=== PATIENT | female | born 1970 | race Caucasian/White ===

== ENCOUNTER 2021-02-05 20:21 | Emergency (ER) | payer BC ==
[2021-02-05 20:28] VITALS: BP 148/92; PULSE 92; RESP 18; TEMP 98.2
--- NOTE | 2021-02-05 20:46 | ED ---
Lower Extremity Injury HPI - General Chief Complaint: Extremity Injury, Lower Stated Complaint: Fall,ankle injury Time Seen by Provider: 02/05/21 20:37 Source: patient Mode of arrival: EMS Limitations: no limitations - History of Present Illness Initial Comments: Lucia is a 51-year-old female who presents the ER today for evaluation of right ankle pain. Patient reports that she frequently rolls her ankles, she was walking down carpeted stairs when she rolled her ankle and then fell down the stairs. Patient reports she noted pain and swelling in the right ankle and called EMS for transfer to the hospital. She denies other injuries. He had frequent sprains to this ankle but no surgeries - Related Data Allergies Allergy/AdvReac Type Severity Reaction Status Date / Time Iodinated Contrast Media Allergy Anaphylaxis Verified 02/05/21 20:28 Review of Systems ROS Statement: Those systems with pertinent positive or pertinent negative responses have been documented in the HPI. ROS Other: All systems not noted in ROS Statement are negative. Past Medical History Past Medical History: Asthma, Diabetes Mellitus Additional Past Medical History / Comment(s): scoliosis History of Any Multi-Drug Resistant Organisms: None Reported Past Surgical History: Section, Orthopedic Surgery Past Psychological History: Anxiety, Depression Smoking Status: Current every day smoker Past Alcohol Use History: Rare Past Drug Use History: Marijuana General Exam - General Exam Comments Initial Comments: Physical Exam GENERAL: Patient is well-developed and well-nourished. Patient is nontoxic and well-hydrated and is in no distress. HENT: Normocephalic, Atraumatic. EYES: PERRL, EOMI PULMONARY: Unlabored respirations. CARDIOVASCULAR: RRR Warm and well perfused extremities ABDOMEN: Non-distended SKIN: No rashes or bruising : Deferred NEUROLOGIC: Alert and oriented Normal speech Normal gait MUSCULOSKELETAL: Swelling of the right ankle most prominent around the lateral malleolus PSYCHIATRIC: No SI/HI Limitations: no limitations Course Vital Signs 02/05/21 20:23 Temperature 98.2 F Pulse Rate 92 Respiratory 18 Rate Blood Pressure 148/92 O2 Sat by Pulse 99 Oximetry Procedures - Orthopedic Splinting/Casting Injury #1 Side: right Lower Extremity Injury Location: ankle Lower Extremity Immobilizer: stirrup splint Other Orthopedic Equipment: crutches Medical Decision Making - Medical Decision Making She was obtained from the patient x-rays were obtained due to concern for fracture, there was a fracture of the distal fibula, patient was placed in a posterior splint with stirrup support. Patient advised to follow-up with the or tho outpatient for splint placement Disposition Clinical Impression: Fracture of distal fibula Disposition: HOME SELF-CARE Condition: Stable Is patient prescribed a controlled substance at d/c from ED?: No Referrals: Celeste Guzman MD [Primary Care Provider] - 1-2 days Angela Cordova DO [Doctor of Osteopathic Medicine] - 1-2 days Kamron Merritt DO [REFERRING] - 1-2 days Kyle Merritt DO [REFERRING] - 1-2 days
--- NOTE | 2021-02-05 21:00 | XR ---
EXAMINATION TYPE: XR ankle complete RT DATE OF EXAM: 02/05/2021 COMPARISON: NONE HISTORY: Pain TECHNIQUE: 3 views FINDINGS: There is nondisplaced oblique fracture of the distal fibula. There is mild soft tissue swelling. the talus is intact. Distal tibia is intact. IMPRESSION: Acute nondisplaced fracture of the lateral malleolus.
[2021-02-05] MEDS ORDERED: ACET/COD 300 MG/30 MG STARTER PACK 6 TAB BTL PO STA (21:28)
== END 2021-02-05 22:45 | disposition home or self-care (01) ==
LOC: EC 20:21
DX: S82.434A Nondisplaced oblique fracture of shaft of right fibula, initial encounter for closed fracture (principal); J45.909 Unspecified asthma, uncomplicated; E11.9 Type 2 diabetes mellitus without complications; F17.200 Nicotine dependence, unspecified, uncomplicated; F31.9 Bipolar disorder, unspecified; F12.90 Cannabis use, unspecified, uncomplicated; X50.0XXA Overexertion from strenuous movement or load, initial encounter; Y93.01 Activity, walking, marching and hiking
CPT/HCPCS: 29515; 99283

== ENCOUNTER 2025-03-14 04:43 | Emergency (ER) | payer BC ==
--- NOTE | 2025-03-14 05:40 | ED ---
General Adult HPI - General Chief complaint: Recheck/Abnormal Lab/Rx Stated complaint: swelling Time Seen by Provider: 03/14/25 04:48 Source: patient, EMS Mode of arrival: EMS Limitations: no limitations - History of Present Illness Initial comments: Patient is a 55-year-old female past medical history of diabetes presenting today for feeling "swollen" after eating a THC rice crispy. Patient states that she was self treating her chronic right hip pain that she has been With scoliosis and after ingesting 10 mg THC rice crispy bite she began to feel like her hands, face and chest were swollen. She denies difficulty in breathing, rashes, nausea vomiting, chest pain. Also endorses concern that she has had persistent lower extremity swelling for a few weeks. She states she is following with a nurse practitioner who has told her to drink more water. She states she was following with a primary care physician however he retired and she is looking for a new one. She has no diagnosed history of heart failure or CAD. Denies fevers or chills, diarrhea, melena, hematochezia. Denies recent falls or injury to her right hip. - Related Data Home Medications Medication Instructions Recorded Confirmed Atorvastatin [Lipitor] 20 mg PO HS 07/07/22 07/07/22 Cetirizine HCl 10 mg PO DAILY 07/07/22 07/07/22 Fluticasone Propion/Salmeterol 1 puff INHALATION RT-BID 07/07/22 07/07/22 [Advair 250-50 Diskus] Fluticasone Propionate 2 puff IN DAILY 07/07/22 07/07/22 [Fluticasone Propionate Nasal [place]] Insulin Degludec [Tresiba 50 units SQ DAILY 07/07/22 07/07/22 Flextouch U-200 Pen] Insulin Lispro [humaLOG Kwikpen] 1 - 10 units SQ AC-TID 07/07/22 07/07/22 Ketoconazole 2% Shampoo [Nizoral] 1 applic TOPICAL Q72H PRN 07/07/22 07/07/22 Montelukast [Singulair] 10 mg PO HS 07/07/22 07/07/22 Nystatin 100,000 Unit/gm Powd 1 applic TOPICAL BID PRN 07/07/22 07/07/22 [Mycostatin Powder] Triamcinolone 0.1% Cream [Kenalog 1 applicatio TOPICAL BID PRN 07/07/22 07/07/22 0.1% Cream] allopurinoL [Zyloprim] 100 mg PO DAILY 07/07/22 07/07/22 Previous Rx's Medication Instructions Recorded Albuterol Inhaler [Ventolin Hfa 2 puff INHALATION RT-Q4H 30 Days 07/13/22 Inhaler] each Divalproex ER [Depakote ER] 1,000 mg PO HS 30 Days tab 07/13/22 risperiDONE [RisperDAL] 3 mg PO BID 21 Days tab 07/13/22 risperiDONE microspheres 50 mg IM [id number] #1 each 07/13/22 [RisperDAL Consta] traZODone HCL [Desyrel] 150 mg PO HS 30 Days tab 07/13/22 Azithromycin [Zithromax Z Pack] 1 tab PO DIRECTED #6 tab 03/14/25 Allergies Allergy/AdvReac Type Severity Reaction Status Date / Time Iodinated Contrast Media Allergy Anaphylaxis Verified 03/14/25 04:54 Review of Systems ROS Statement: Those systems with pertinent positive or pertinent negative responses have been documented in the HPI. ROS Other: All systems not noted in ROS Statement are negative. Past Medical History Past Medical History: Asthma, Diabetes Mellitus, Hypertension Additional Past Medical History / Comment(s): scoliosis History of Any Multi-Drug Resistant Organisms: None Reported Past Surgical History: Section, Orthopedic Surgery Past Psychological History: Anxiety, Depression Smoking Status: Current every day smoker Past Alcohol Use History: None Reported Past Drug Use History: Marijuana General Exam - General Exam Comments Initial Comments: PE: CONSTITUTIONAL: No apparent distress, well appearing SKIN: Warm, dry, no jaundice, hives or petechiae EYES: Pupils are equally round, extraocular movements intact without nystagmus, clear conjunctiva, non-icteric sclera HENT: Normocephalic, atraumatic, moist mucus membranes, oropharynx clear without exudates, no oropharyngeal edema, no tongue swelling NECK: , Full range of motion, normal appearance PULMONARY: Clear to auscultation without wheezes, rhonchi, or rales, normal excursion, no accessory muscle use and no stridor, no chest swelling CARDIOVASCULAR: Regular rate, rhythm, normal S1 and S2. No appreciated murmurs, rubs or gallops. Strong radial pulses with intact distal perfusion. 2+ LE pitting edema up to shins GASTROINTESTINAL: Soft, active bowel sounds throughout, non-tender, non- distended, no palpable masses, no rebound or guarding. No hepatosplenomegaly MUSCULOSKELETAL: Extremities have no gross deformity, no edema (w/ exception of LE edema as noted above), upper extremities are nonedematous, no redness, or swelling. No calf swelling NEUROLOGIC:_a/o x 3, GCS 15, normal mentation and speech. Moves all extremities x 4 without motor or sensory deficit PSYCHIATRIC:_normal mood and affect, thought process is clear and linear Limitations: no limitations Course Vital Signs 03/14/25 03/14/25 04:46 07:44 Temperature 97.9 F 97.5 F L Pulse Rate 85 87 Respiratory 17 19 Rate Blood Pressure 126/83 148/79 O2 Sat by Pulse 92 L 97 Oximetry EKG Findings - EKG Comments: EKG Findings:: Sinus Rhythm, Rate 83 bpm, SD interval 128 ms QT/QTc 347/3 7 ms, normal axis, no ST elevations or depressions, no arrhythmia, no ischemic changes Medical Decision Making - Medical Decision Making Was pt. sent in by a medical professional or institution (, PA, PAYROLL TECHNICIAN, urgent care, hospital, or senior living...) When possible be specific @ -[No] Did you speak to anyone other than the patient for history (EMS, parent, family, police, friend...)? What history was obtained from this source @ -[No] Did you review nursing and triage notes (agree or disagree)? Why? @ -[I reviewed nursing and triage notes] Were old charts reviewed (outside hosp., previous admission, EMS record, old EKG, old radiological studies, urgent care reports/EKG's, senior living records)? Report findings @ -[Medical records reviewed] Differential Diagnosis (chest pain, altered mental status, abdominal pain women, abdominal pain men, vaginal bleeding, weakness, fever, dyspnea, syncope, headache, dizziness, GI bleed, back pain, seizure, CVA, palpatations, mental health, musculoskeletal)? @ -[not applicable] EKG interpreted by me (3pts min.). @ -[As above] X-rays interpreted by me (1pt min.). @ -[None done] CT interpreted by me (1pt min.). @ -[None done] U/S interpreted by me (1pt. min.). @ -[None done] What testing was considered but not performed or refused? (CT, X-rays, U/S, labs)? Why? @ -[None] What meds were considered but not given or refused? Why? @ -[None] Did you discuss the management of the patient with other professionals (professionals i.e. DrRaúl, PA, PAYROLL TECHNICIAN, lab, RT, psych nurse, social media strategist, roof foreman, teacher, child support case officer, test case developer)? Give summary @ -[No] Was smoking cessation discussed for >3mins.? @ -[No] Was critical care preformed (if so, how long)? @ -[No] Were there social determinants of health that impacted care today? How? (Homelessness, low income, unemployed, alcoholism, drug addiction, transportation, low edu. Level, literacy, decrease access to med. care, fci, rehab)? @ -[No] Was there de-escalation of care discussed even if they declined (Discuss DNR or withdrawal of care, Hospice)? @ -[No] What co-morbidities impacted this encounter? (DM, HTN, Smoking, COPD, CAD, Cancer, CVA, ARF, Chemo, Hep., AIDS, mental health diagnosis, sleep apnea, morbid obesity)? @ -[None] Was patient admitted / discharged? Hospital course, mention meds given and route, prescriptions, significant lab abnormalities, going to OR and other pertinent info. @ -[hospital course] Undiagnosed new problem with uncertain prognosis? @ -[No] Drug Therapy requiring intensive monitoring for toxicity (Heparin, Nitro, Insulin, Cardizem)? @ -[No] Were any procedures done? @ -[No] Diagnosis/symptom? @ -[default] Acute, or Chronic, or Acute on Chronic? @ -[default] Uncomplicated (without systemic symptoms) or Complicated (systemic symptoms)? @ -[default] Side effects of treatment? @ -[No] Exacerbation, Progression, or Severe Exacerbation? @ -[No] Poses a threat to life or bodily function? How? (Chest pain, [place], [place], pneumonia, PE, COPD, DKA, ARF, appy, cholecystitis, CVA, Diverticulitis, Homicidal, Suicidal, threat to staff... and all critical care pts) @ -[No] - Lab Data Result diagrams: 03/14/25 06:05 03/14/25 06:05 Lab Results 03/14/25 03/14/25 03/14/25 Range/Units 06:05 06:05 06:05 WBC 11.69 H (4.50-10.00) 10*3/uL RBC 4.13 (4.10-5.20) 10*6/uL Hgb 10.1 L (12.0-15.0) g/dL Hct 32.6 L (37.2-46.3) % MCV 78.9 L (80.0-97.0) fL MCH 24.5 L (27.0-32.0) pg MCHC 31.0 L (32.0-37.0) g/dL Plt Count 486 H (140-440) 10*3/uL MPV 9.4 L (9.5-12.2) fL Immature Gran % (Auto) 0.3 % Neutrophils % 59.0 % Lymphocytes % 26.4 % Monocytes % 9.2 % Eosinophils % 4.4 % Basophils % 0.7 % Immature Gran # 0.04 (0.00-0.04) 10*3/uL Neutrophils # 6.88 (1.80-7.70) 10*3/uL Lymphocytes # 3.09 (0.90-5.00) 10*3/uL Monocytes # 1.08 H (0.20-1.00) 10*3/uL Eosinophils # 0.52 H (0.04-0.35) 10*3/uL Basophils # 0.08 (0.00-0.10) 10*3/uL PT 10.5 (10.0-12.5) sec INR 0.9 (<1.2) APTT 22.4 (22.0-30.0) sec Sodium 137 (137-145) mmol/L Potassium 4.1 (3.5-5.1) mmol/L Chloride 103 (98-107) mmol/L Carbon Dioxide 30 (22-30) mmol/L Anion Gap 4 mmol/L BUN 14 (7-17) mg/dL Creatinine 0.59 (0.52-1.04) mg/dL Est GFR (CKD-EPI)AfAm >90 (>60 ml/min/1.73 sqM) Est GFR (CKD-EPI)NonAf >90 (>60 ml/min/1.73 sqM) Glucose 122 H (74-99) mg/dL Calcium 9.9 (8.4-10.2) mg/dL Total Bilirubin 0.5 (0.2-1.3) mg/dL AST 22 (14-36) U/L ALT 19 (4-34) U/L Alkaline Phosphatase 84 (38-126) U/L Troponin I (0.000-0.034) ng/mL NT-Pro-B Natriuret Pep 168 pg/mL Total Protein 6.3 (6.3-8.2) g/dL Albumin 3.9 (3.5-5.0) g/dL Urine Color Urine Appearance (Clear) Urine pH (5.0-8.0) Ur Specific Lee (1.001-1.035) Urine Protein (Negative) Urine Glucose (UA) (Negative) Urine Ketones (Negative) Urine Blood (Negative) Urine Nitrite (Negative) Urine Bilirubin (Negative) Urine Urobilinogen (<2.0) mg/dL Ur Leukocyte Esterase (Negative) 03/14/25 03/14/25 Range/Units 06:05 07:39 WBC (4.50-10.00) 10*3/uL RBC (4.10-5.20) 10*6/uL Hgb (12.0-15.0) g/dL Hct (37.2-46.3) % MCV (80.0-97.0) fL MCH (27.0-32.0) pg MCHC (32.0-37.0) g/dL Plt Count (140-440) 10*3/uL MPV (9.5-12.2) fL Immature Gran % (Auto) % Neutrophils % % Lymphocytes % % Monocytes % % Eosinophils % % Basophils % % Immature Gran # (0.00-0.04) 10*3/uL Neutrophils # (1.80-7.70) 10*3/uL Lymphocytes # (0.90-5.00) 10*3/uL Monocytes # (0.20-1.00) 10*3/uL Eosinophils # (0.04-0.35) 10*3/uL Basophils # (0.00-0.10) 10*3/uL PT (10.0-12.5) sec INR (<1.2) APTT (22.0-30.0) sec Sodium (137-145) mmol/L Potassium (3.5-5.1) mmol/L Chloride (98-107) mmol/L Carbon Dioxide (22-30) mmol/L Anion Gap mmol/L BUN (7-17) mg/dL Creatinine (0.52-1.04) mg/dL Est GFR (CKD-EPI)AfAm (>60 ml/min/1.73 sqM) Est GFR (CKD-EPI)NonAf (>60 ml/min/1.73 sqM) Glucose (74-99) mg/dL Calcium (8.4-10.2) mg/dL Total Bilirubin (0.2-1.3) mg/dL AST (14-36) U/L ALT (4-34) U/L Alkaline Phosphatase (38-126) U/L Troponin I <0.012 (0.000-0.034) ng/mL NT-Pro-B Natriuret Pep pg/mL Total Protein (6.3-8.2) g/dL Albumin (3.5-5.0) g/dL Urine Color Colorless Urine Appearance Clear (Clear) Urine pH 6.0 (5.0-8.0) Ur Specific Lee 1.015 (1.001-1.035) Urine Protein Negative (Negative) Urine Glucose (UA) Negative (Negative) Urine Ketones Negative (Negative) Urine Blood Negative (Negative) Urine Nitrite Negative (Negative) Urine Bilirubin Negative (Negative) Urine Urobilinogen <2.0 (<2.0) mg/dL Ur Leukocyte Esterase Negative (Negative) Disposition Clinical Impression: Pneumonia, Lower extremity edema, Drug side effects Disposition: HOME SELF-CARE Condition: Good Instructions (If sedation given, give patient instructions): Bacterial Pneumonia (ED) Additional Instructions: Every disease is a spectrum and a small chance still exists that a serious condition could develop, for this reason, please monitor yourself closely for new, changing or worsening symptoms, symptoms that persist beyond 48 hours, hallucinations, severe headaches, difficulty in breathing, chest pain fever, inability to tolerate/keep down fluids or your medications, inability to follow up with outpatient providers as instructed and should you experience these symptoms or should you have any further concerns for your wellbeing please return to the ED or call 911 immediately. Please avoid continued THC use and attempt use of pain medications listed below. Your pain can be treated with ibuprofen and acetaminophen. You can take up to 400-600 mg of ibuprofen (Advil, Motrin) 3 times daily (every 8 hours) but can also use lower doses if this relieves your pain. Some people prefer naproxen (Aleve, Naprosyn) which can be taken in doses of 500 mg up to twice a day. Do not take both of these medicines together, and do not combine either with ketorolac (Toradol), meloxicam (Mobic), or indomethacin (Tivorbex). Some people can develop stomach discomfort with higher doses of either ibuprofen or naproxen, if this develops decrease your dose or stop taking it. If you need to take this dose daily for more than a week, please schedule an appointment for re-evaluation with your PCP. Please take these medications with food. You can take up to 1000 mg of acetaminophen (Tylenol) every 6 hours. Be careful as this is included in some medicines like Nyquil, [place], Percocet, Vicodin, STANBACK, Goody's Powders, and Excedrin. You can also use lidocaine patches for topical pain. You can purchase 4% patches over the counter at most drug stores. These can be helpful for pain from your muscles or bones. PLEASE call your primary care physician as soon as possible to arrange / discuss plan for followup appointment. Appointment in the next 1-3 days is strongly encouraged if possible. PLEASE let us know here before you leave if there is anything further we can do to be of any assistance. Take care and feel Better! Prescriptions: Azithromycin [Zithromax Z Pack] 1 tab PO DIRECTED #6 tab Is patient prescribed a controlled substance at d/c from ED?: No Referrals: None,Stated [Primary Care Provider] - 1-2 days Forms: Area PCPs
[2025-03-14 06:13] LABS: Basophils # (A) 0.08 10*3/uL (0.00-0.10); Basophils % (A) 0.7 %; Eosinophils # (A) 0.52 10*3/uL (0.04-0.35); Eosinophils % (A) 4.4 %; HCT 32.6 % (37.2-46.3); HGB 10.1 g/dL (12.0-15.0); Lymphocytes # (A) 3.09 10*3/uL (0.90-5.00); Lymphocytes % (A) 26.4 %; MCH 24.5 pg (27.0-32.0); MCV 78.9 fL (80.0-97.0); Mean Platelet Volume 9.4 fL (9.5-12.2); Monocytes # (A) 1.08 10*3/uL (0.20-1.00); Monocytes % (A) 9.2 %; Neutrophils # (A) 6.88 10*3/uL (1.80-7.70); Platelet Count 486 10*3/uL (140-440); RBC 4.13 10*6/uL (4.10-5.20); RDW 15.4 % (11.5-14.5); WBC 11.69 10*3/uL (4.50-10.00)
[2025-03-14] MEDS: IBUPROFEN 600 MG TAB PO STA (06:23)
[2025-03-14 06:33] LABS: ALT 19 U/L (4-34); AST 22 U/L (14-36); African American GFR (CKD) >90 (>60 ml/min/1.73 sqM); Albumin 3.9 g/dL (3.5-5.0); Alkaline Phosphatase 84 U/L (38-126); Anion Gap 4 mmol/L; Blood Urea Nitrogen 14 mg/dL (7-17); Calcium 9.9 mg/dL (8.4-10.2); Carbon Dioxide 30 mmol/L (22-30); Chloride 103 mmol/L (98-107); Glucose 122 mg/dL (74-99); Non-African American GFR(CKD) >90 (>60 ml/min/1.73 sqM); Potassium 4.1 mmol/L (3.5-5.1); Sodium 137 mmol/L (137-145); Total Bilirubin 0.5 mg/dL (0.2-1.3); Total Protein 6.3 g/dL (6.3-8.2)
--- NOTE | 2025-03-14 06:37 | XR ---
Two-view chest. CLINICAL INDICATION: Female, 55 years old with history of difficulty breathing,Cough. COMPARISON: None TECHNIQUE: PA and lateral views chest obtained. FINDINGS: There is focal airspace consolidation in the left lower lobe medially consistent with pneumonia. There is no pleural effusion, pleural thickening or pneumothorax. The heart, pulmonary vasculature, mediastinum and hilum appear normal. The osseous structures are intact. IMPRESSION: Left lower lobe pneumonia. Short-term follow-up to resolution is recommended. [facility], , 03/14/2025 6:35 AM
[2025-03-14 06:42] LABS: NT-Pro-B-Type Natriuretic Pept 168 pg/mL
[2025-03-14 06:46] LABS: INR 0.9 (<1.2); Partial Thromboplastin Time 22.4 sec (22.0-30.0); Prothrombin Time 10.5 sec (10.0-12.5)
--- NOTE | 2025-03-14 07:46 | US ---
EXAMINATION TYPE: US venous doppler duplex LE BI DATE OF EXAM: 03/14/2025 7:35 AM COMPARISON: NONE CLINICAL INDICATION: Female, 55 years old with history of bilat LE edema; bilat edema x 1 day, no hx of dvt, not on blood thinners, Pain TECHNIQUE: The lower extremity deep venous system is examined utilizing real time linear array sonog michelle with graded compression, color doppler sonography, and spectral doppler. SIDE PERFORMED: Bilateral FINDINGS: VESSELS IMAGED: Common Femoral Vein Deep Femoral Vein Greater Saphenous Vein * Femoral Vein Popliteal Vein Small Saphenous Vein * Proximal Calf Veins (* superficial vessels) The deep venous systems of both lower extremities from the common femoral remains to the proximal maninder f veins are patent and compressible with augmentable flow and with normal waveforms. IMPRESSION: No evidence of bilateral lower extremity DVT from the common femoral veins to the proximal calf veins [facility], Workstation: [id number] 03/14/2025 7:43 AM
[2025-03-14 08:16] LABS: Appearance,Urine Clear (Clear); Bilirubin,Urine Negative (Negative); Blood,Urine Negative (Negative); Color,Urine Colorless; Glucose,Urine (UA) Negative (Negative); Ketones,Urine Negative (Negative); Leukocyte Esterase,Urine Negative (Negative); Nitrite,Urine Negative (Negative); Protein,Urine Negative (Negative); Specific Gravity,Urine 1.015 (1.001-1.035); Urobilinogen,Urine <2.0 mg/dL (<2.0)
[2025-03-14 08:51] VITALS: BP 131/75; PULSE 84; RESP 16; TEMP 97.9
== END 2025-03-14 08:51 | disposition home or self-care (01) ==
LOC: EC 04:43
DX: J18.9 Pneumonia, unspecified organism (principal); R60.0 Localized edema; T50.905A Adverse effect of unspecified drugs, medicaments and biological substances, initial encounter; F17.200 Nicotine dependence, unspecified, uncomplicated; Z91.041 Radiographic dye allergy status
CPT/HCPCS: 36415; 71046; 80053; 81003; 83880; 84484; 85025; 85610; 85730; 93005; 93970; 99285